=== PATIENT | female | born 1990 | race Caucasian/White ===

== ENCOUNTER → 2016-12-13 | Day surgery (SDC) | payer OTHER ==
[~2016-12-13] MED LIST: BACITRACIN IM FOR SOLN 50,000 UNIT VIAL ONE; BUPIVACAINE HCL PF 0.75% 30 ML VIAL ONE; LACTATED RINGER'S 1000 ML INJ 1,000 ML ONE; LIDOCAINE 1.5%/EPINEPHrine 1:200,000 PF SOLN 30 ML AMP ONE; MIDAZOLAM HCL 5 MG/ML VIAL (1 ML) ONE; ONDANSETRON HCL 4 MG/2 ML VIAL IV PUSH ONE; PROPOFOL 500 MG/50 ML BTL IV ONE; SODIUM CHLORIDE 0.9% 20 ML VIAL ONE; ceFAZolin 2 GM PREMIX 50 ML ONE; ceFAZolin INJ 1,000 MG VIAL ONE
--- NOTE | 2016-12-17 11:21 | MP ---
cc: CABRERA MORALES DATE OF SURGERY 12/13/2016 PREOPERATIVE DIAGNOSIS Left knee anterior cruciate ligament tear. POSTOPERATIVE DIAGNOSES Left knee anterior cruciate ligament tear. PROCEDURE Left knee anterior cruciate ligament arthroscopic assisted allograft reconstruction. SURGEON Dr. Cabrera Morales SHIFT MANAGER Donato Hidalgo PA-C ANESTHESIA General with a femoral and popliteal nerve block. ESTIMATED BLOOD LOSS Less than 50 cc TOURNIQUET TIME Zero minutes COMPLICATIONS None IMAGING STUDIES Arthrex JUSTIFICATION This patient is a 26-year-old female who injured her left knee resulting in a complete disruption of the anterior cruciate ligament. She had persistence in the pain and instability of her knee and was evaluated by us in the [facility]. Clinical exam, as well as MRI confirmed the above-named findings. The patient was counseled as to the risks, benefits and alternatives for the above-named proposed surgical procedure. She did wish to proceed with surgery. PROCEDURE IN DETAIL A written consent was obtained. The patient identified by name, taken to the operating room, placed supine on the operating room table and general anesthesia was administered as well as two grams of IV Ancef. The left thigh carefully placed in the well-padded leg parks. The left lower extremity prepped and draped using Isopropyl alcohol, Hibiclens solution and DuraPrep solution. After a time-out was performed, a medial and lateral parapatellar arthroscopic portal was established. The patellofemoral joint revealed no significant chondromalacia. The medial compartment was free of meniscal pathology and chondromalacia. The medial meniscus was carefully probed. The intercondylar notch revealed a complete disruption of the anterior cruciate ligament. The lateral compartment revealed no evidence of meniscal tearing. There was a focal area of an osteochondral injury lateral femoral condyle associated with a pivot shift injury, but no unstable cartilage fragmentation upon probing. A shaver was used to perform a debridement of the torn anterior cruciate ligament stump. An arthroscopic bur was used to perform a notchplasty. The posterior wall was well-visualized. A 6-mm [id number] femoral guide was placed at the 10 o'clock position from the medial portal along the lateral femoral condyle. A guide pin was drilled exiting the lateral femoral condyle from the medial portal. Subsequently a 9.5 mm low profile cannulated reamer was drilled to a depth of 30 mm. The shaver was used to clean soft tissue, bone and debris from within the knee joint. The Beath needle was used to shuttle a FiberLink suture from the medial portal and exiting the femoral tunnel on the lateral side. The Arthrex retro-cutting tibial guide centered within the footprint of the dry creek ACL. A guide pin was drilled to capture the 9.5 mm drill bit. Tibial tunnel was were retro-cut 9.5 mm in diameter. The shaver was used to clean soft tissue and bone debris away from within the knee joint. The shuttling suture was then pulled exiting the tibial tunnel. On the back table, the corporate counsel tibialis tendon allograft was thawed in antibiotic solution. Donato Hidalgo, physician first assistant certified, was instrumental in fashioning the graft to a folded diameter of 9.5 mm. A #2 FiberWire suture was placed in the proximal distal portion of the graft. The graft was pre-tensioned on the back table. Once repaired, an Arthrex tightrope was placed in the midportion the graft. The sutures from the tightrope were placed through the loop of a FiberLink suture. The sutures was then pulled from the tibial tunnel exiting the femoral tunnel. The tightrope anchor was then pulled from the tibial tunnel exiting the femoral tunnel obtaining lateral purchase of cortical fixation. This was tested manually. Subsequently, the graft was pulled from the tibial tunnel and well seated into the femoral tunnel. The graft was taken through a full range of motion with no evidence of pistoning or impingement. With the leg held in near full extension, a guide was placed along the anterior portion of the graft and an Arthrex 9 x 28 mm bioabsorbable interference screw was used for fixation on the tibial side. An intraoperative Fawad examination was performed. The graft from the tibial tunnel was removed with the 15 blade scalpel. The tibial incisions were closed with 3-0 Vicryl suture. Skin incisions were closed with 3-0 Prolene sutures. Sterile dressings were applied. The patient tolerated the procedure well with no intraoperative complications noted. Donato Hidalgo, physician first assistant certified, was present during the entire procedure to include patient positioning and the procedure itself. The medical necessity of a physician first assistant was indicated in this case due to the complexity of the procedure. He assisted with appropriate manipulation of the leg and also manipulation of the camera. He assisted with drilling of tunnels, preparation of graft, and implantation of the graft and internal fixation devices for purposes of reconstruction. MD DAVE Mora/KAREN /12:02 PM /11:07
== END | disposition home or self-care (01) ==
LOC: ESDC 09:26
PROVIDERS: ATTEND Orthopaedic Surgery Sports Medicine
DX: S83.512A Sprain of anterior cruciate ligament of left knee, initial encounter (principal)
CPT/HCPCS: 01400; 01991; 29888; 64447; C1713; J0690; J2250; J2405; J3010; J7120